=== PATIENT | female | born 1995 | race Caucasian/White ===

== ENCOUNTER 2017-06-25 16:56 | Emergency (ER) | payer MEDICAID, OTHER ==
[2017-06-25 17:41] VITALS: O2SAT 100
--- NOTE | 2017-06-25 17:46 | C.PDOC ---
History Of Present Illness 21 year old female presents to the ED for evaluation of pain to her right groin region which began yesterday. Patient denies fever, chills, vaginal discharge, fluctuations in weight, trauma to affected area or intercourse with multiple partners. Time Seen by Provider: 06/25/17 17:35 Chief Complaint (Nursing): Abdominal Pain History Per: Patient History/Exam Limitations: no limitations Onset/Duration Of Symptoms: Hrs Current Symptoms Are (Timing): Still Present Associated Symptoms: denies: Fever, Chills Additional History Per: Patient Abnormal Vaginal Bleeding: No Past Medical History Reviewed: Historical Data, Nursing Documentation, Vital Signs Vital Signs: Last Vital Signs Temp 97.7 F 06/25/17 18:54 Pulse 59 L 06/25/17 18:54 Resp 17 06/25/17 18:54 BP 107/68 06/25/17 18:54 Pulse Ox 100 06/25/17 22:43 - Medical History PMH: No Chronic Diseases Surgical History: No Surg Hx Family History: States: Unknown Family Hx - Social History Hx Tobacco Use: No Hx Alcohol Use: No Hx Substance Use: No - Immunization History Hx Tetanus Toxoid Vaccination: No Hx Influenza Vaccination: No Hx Pneumococcal Vaccination: No Review Of Systems Constitutional: Negative for: Fever, Chills, Weight loss Genitourinary: Negative for: Vaginal Discharge Physical Exam - Physical Exam Appears: Non-toxic, No Acute Distress Skin: Normal Color, Warm, Dry Head: Atraumatic, Normacephalic Eye(s): bilateral: Normal Inspection Oral Mucosa: Moist Neck: Supple Lymphatic: Other (no generalized lymphadenopathy to abdomen, groin and neck regions ) Chest: Symmetrical, No Deformity, No Tenderness Cardiovascular: Rhythm Regular, No Murmur Respiratory: Normal Breath Sounds, No Rales, No Rhonchi, No Wheezing Gastrointestinal/Abdominal: Other (one, right-sided inguinal lymph node that is mildly tender to palpation. technology training associate: patient's mother ) Pelvic: Other (deferred) Extremity: Normal ROM, Capillary Refill (less than 2 seconds ) Neurological/Psych: Oriented x3, Normal Speech, Normal Cognition Gait: Steady ED Course And Treatment - Laboratory Results Lab Interpretation: Normal (ua neg, GC/Chlamydia sent) Urine POC: Negative O2 Sat by Pulse Oximetry: 100 (RA) Pulse Ox Interpretation: Normal Progress Note: Labs were ordered and patient was given motrin. Reevaluation Time: 18:43 Reassessment Condition: Improved Medical Decision Making Medical Decision Making: single mild tender L inguinal LN No vag d/c, no new partners, LOW susp of STD so NOT treated empirically for STD and referred for opt f/u @ [facility] and will f/u GC/Chlamydia from urine sent today- expecting call @ home if results POs Benign R inguinal LN improved with NSAIDS no leg/groin pathology noted ok to f/u with PMD/Clinic, watchful observation Disposition Doctor Will See Patient In The: Office Counseled Patient/Family Regarding: Studies Performed, Diagnosis - Disposition Referrals: [facility] [Outside] [place] [facility] [Outside] Disposition: HOME/ ROUTINE Disposition Time: 18:45 Condition: GOOD Additional Instructions: Urinalysis and Tests NEGATIVE today continue Motrin 400-600 mg every 6 hours as needed for groin lymph node discomfort Expect follow-up from the urine GC/Chlamydia samples sent from the urine ( usually 2-3 days) ONLY if the results are POSITIVE. Follow-up in our [place] for outpatient eval and screening for STDs for your and your sexual partner(s) as necessary. Instructions: Lymphadenopathy (ED) Forms: [facility] (Indonesian) - Clinical Impression Clinical Impression: Inguinal adenopathy - Scribe Statement The provider has reviewed the documentation as recorded by the Scribe Provider Attestation: All medical record entries made by the Scribe were at my direction and personally dictated by me. I have reviewed the chart and agree that the record accurately reflects my personal performance of the history, physical exam, medical decision making, and the department course for this patient. I have also personally directed, reviewed, and agree with the discharge instructions and disposition.
[2017-06-25 18:37] LABS: RBC URINE 2 /hpf (0-3); URINE BACTERIA OCC (<OCC); URINE BILIRUBIN NEGATIVE (NEGATIVE); URINE BLOOD NEGATIVE (NEGATIVE); URINE COLOR Yellow (YELLOW); URINE GLUCOSE (UA) NORMAL (Normal); URINE KETONE NEGATIVE (NEGATIVE); URINE LEUKOCYTE ESTERASE NEG Leu/uL (Negative); URINE PROTEIN NEGATIVE (NEGATIVE); URINE UROBILINOGEN NORMAL mg/dL (0.2-1.0); WBC URINE 1 /hpf (0-5)
[2017-06-25 18:55] VITALS: BP 107/68; PULSE 59; RESP 17; TEMP 97.7
== END 2017-06-25 18:55 | disposition home or self-care (01) ==
LOC: C.ER 16:56
DX: R59.0 Localized enlarged lymph nodes (principal)